=== PATIENT | male | born 1945 | race Caucasian/White ===

== ENCOUNTER 2024-12-12 08:59 | Day surgery (SDC) | payer MEDICARE, OTHER ==
[~2024-12-12 08:59] MED LIST: Midazolam 1 MG/ML 2 ML SDV ONE; Propofol 200 MG/20 ML SDV ONE; Sodium Chloride 0.9% 10 ML Syringe FLUSH PRN
[2024-12-12] MEDS: Lactated Ringers 1,000 ML IV SCH (09:27)
== END 2024-12-12 11:51 | disposition home or self-care (01) ==
LOC: LL.SDS 08:59
PROVIDERS: ATTEND Surgery
DX: K52.9 Noninfective gastroenteritis and colitis, unspecified (principal); K63.3 Ulcer of intestine; K62.89 Other specified diseases of anus and rectum; K57.30 Diverticulosis of large intestine without perforation or abscess without bleeding; I12.9 Hypertensive chronic kidney disease with stage 1 through stage 4 chronic kidney disease, or unspecified chronic kidney disease; E11.22 Type 2 diabetes mellitus with diabetic chronic kidney disease; N18.32 Chronic kidney disease, stage 3b; I48.0 Paroxysmal atrial fibrillation; D63.1 Anemia in chronic kidney disease; K59.00 Constipation, unspecified; Z79.01 Long term (current) use of anticoagulants; Z86.0101 Personal history of adenomatous and serrated colon polyps
CPT/HCPCS: 00811; 82947; 88305; J2250; J2704; J7120